=== PATIENT | female | born 1985 | race Caucasian/White ===

== ENCOUNTER 2017-02-03 14:39 | Outpatient (CLI) | payer BC | END 2017-02-03 14:40 | disposition home or self-care (01) | LOC: CTENTCT 14:39 | PROVIDERS: ATTEND Otolaryngology Plastic Surgery within the Head & Neck | DX: J32.9 Chronic sinusitis, unspecified (principal) | CPT/HCPCS: 70486 ==

== ENCOUNTER 2017-02-16 08:37 | Day surgery (SDC) | payer BC ==
[2017-02-15 13:29] VITALS: BMI 17.8
[2017-02-16] MEDS ORDERED: Oxymetazoline HCl 0.05% ( 15 ML ) ONE ×2 (09:27→11:13)
[2017-02-16] MEDS ORDERED: Midazolam HCl 2 mg/2 ml Vial ONE (09:46)
[2017-02-16] MEDS ORDERED: Fentanyl 100 MCG/2 ML VIAL ONE ×2 (11:12→12:08)
[2017-02-16] MEDS ORDERED: Lidocaine 1% w/Epinephrine 1:200K 30 ML VIAL ONE (11:13)
[2017-02-16] MEDS ORDERED: Dexamethasone 20 MG/5 ML VIAL ONE (11:25)
[2017-02-16] MEDS ORDERED: Ondansetron HCl/PF 4 MG/2 ML Vial ONE (11:25)
[2017-02-16] MEDS ORDERED: Propofol 200 MG/20 ML VIAL ONE (11:25)
[2017-02-16] MEDS ORDERED: Glycopyrrolate 0.2 MG/ML 5 ML SYRINGE ONE (11:25)
[2017-02-16 14:02] LABS: Hematocrit 42.5 % (36.0-47.0)
--- NOTE | 2017-02-17 00:48 | OP ---
PREOPERATIVE DIAGNOSES: 1. Chronic rhinosinusitis. 2. Bilateral inferior turbinate hypertrophy. 3. Nasal obstruction. POSTOPERATIVE DIAGNOSES: 1. Chronic rhinosinusitis. 2. Bilateral inferior turbinate hypertrophy. 3. Nasal obstruction. PROCEDURES: 1. Bilateral endoscopic sinus surgery, total ethmoidectomies. 2. Bilateral endoscopic sinus surgery, maxillary antrostomies. 3. Bilateral endoscopic sinus surgery, frontal sinusotomies. 4. Bilateral inferior turbinate submucosal resection. SURGEON: Osman Johnson M.D. ESTIMATED BLOOD LOSS: 20 mL COMPLICATIONS: None. ANESTHESIA: GETA. PROCEDURE: The patient was taken to the operating room and placed supine on the table. General endo tracheal anesthesia was obtained by the Anesthesia staff. Tube was secured on the left lower lip and the patient was placed in the beach chair position. Following this, Afrin pledgets were placed in t he nasal cavity as the patient was prepped and draped for standard nasal procedure. Following this, the Afrin pledgets were removed. A 0-degree scope was used to inject 1% lidocaine with 1:100,000 epi nephrine with a 27-gauge needle into the inferior turbinates, middle turbinates, and lateral nasal wa ll bilaterally. Following this, the middle turbinates were gently medialized with a Kenton elevator a nd the uncinate process was identified. The uncinate was then anteriorly fractured bilaterally with the ball-ended probe and then was removed using the microdebrider and upbiting Yajaira forceps. Fol lowing that, the natural maxillary ostia was identified and was anteriorly w idened using the straigh t Blakesley forceps and the microdebrider bilaterally. Following this, the ethmoidal bulla was ident ified and was punctured on its medial and inferior aspect with the microdebrider and was removed. Fo llowing this, the grand lamella was identified bilaterally and was punctured into the posterior ethmo idal cell. Working from posterior to anterior, the ethmoidal cells were opened in a mucosal-sparing technique. Following this, the curved microdebrider 45-degree scope was then used to visualize the f rontal sinus ostia, which was then widened using the curved microdebrider. Following this, the infer ior turbinates were then punctured on the anterior inferior aspect with the submucosal microdebrider and submucosal resection was performed bilaterally and the anterior and inferior portions of the infe rior turbinate. Inferior turbinates were gently laterally fractured. The nasal cavity was irrigated . MeroPacks were placed. Rosenthal splints were placed and secured. The patient tolerated the procedur e well.
== END 2017-02-16 13:30 | disposition home or self-care (01) ==
LOC: SDC 08:37
PROVIDERS: ATTEND Otolaryngology Plastic Surgery within the Head & Neck
PROC: 099Q8ZZ Drainage of Right Maxillary Sinus, Via Natural or Artificial Opening Endoscopic (ICD-10-PCS; principal; 2017-02-16)
PROC: 09TU8ZZ Resection of Right Ethmoid Sinus, Via Natural or Artificial Opening Endoscopic (ICD-10-PCS; principal; 2017-02-16)
PROC: 09QS8ZZ Repair Right Frontal Sinus, Via Natural or Artificial Opening Endoscopic (ICD-10-PCS; principal; 2017-02-16)
PROC: 09TL8ZZ Resection of Nasal Turbinate, Via Natural or Artificial Opening Endoscopic (ICD-10-PCS; principal; 2017-02-16)
PROC: 099R8ZZ Drainage of Left Maxillary Sinus, Via Natural or Artificial Opening Endoscopic (ICD-10-PCS; principal; 2017-02-16)
PROC: 09QT8ZZ Repair Left Frontal Sinus, Via Natural or Artificial Opening Endoscopic (ICD-10-PCS; principal; 2017-02-16)
PROC: 09TV8ZZ Resection of Left Ethmoid Sinus, Via Natural or Artificial Opening Endoscopic (ICD-10-PCS; principal; 2017-02-16)
DX: J32.9 Chronic sinusitis, unspecified (principal); J34.3 Hypertrophy of nasal turbinates; Z79.2 Long term (current) use of antibiotics; Z79.899 Other long term (current) drug therapy; Z88.5 Allergy status to narcotic agent; Z88.0 Allergy status to penicillin; Z98.890 Other specified postprocedural states; Z87.81 Personal history of (healed) traumatic fracture
CPT/HCPCS: 84703; 85014; 96374; J0131; J1100; J2250; J2405; J2704; J3010

== ENCOUNTER 2018-08-14 09:21 | Outpatient (CLI) | payer OTHER | END 2018-08-14 09:22 | disposition home or self-care (01) | LOC: CTENTCT 09:21 | PROVIDERS: ATTEND Otolaryngology Plastic Surgery within the Head & Neck | DX: J32.9 Chronic sinusitis, unspecified (principal); L70.0 Acne vulgaris | CPT/HCPCS: 70486 ==

== ENCOUNTER 2019-09-14 15:26 | Emergency (ER) | payer BC, SELFPAY ==
[2019-09-14 16:07] LABS: #Eosinphils 0.1 thou/uL (0.0-0.7); #Lymphocytes 1.6 thou/uL (1.20-3.40); #Monocytes 0.6 thou/uL (0.11-0.59); #Neutrophils 3.9 thou/uL (1.40-6.50); %Basophils 0.1 % (0.0-1.0); %Lymphocytes 26.4 % (21.0-51.0); %Monocytes 10.1 % (0.0-10.0); %Neutrophils 62.4 % (42.0-75.0); Hemoglobin 13.8 g/dL (12.0-16.0); Mean Corpuscular HGB CONC 34.8 g/dL (32.0-36.0); Mean Corpuscular Hemoglobin 31.6 pg (27.0-31.0); Mean Corpuscular Volume 90.9 fL (78.0-98.0); Mean Platelet Volume 8.1 fL (7.4-10.4); Platelet Count 165 thou/uL (130-400); RBC Distribution Width 11.6 % (11.5-14.5); Red Blood Cell (RBC) Count 4.37 mill/uL (4.20-5.40); White Blood Cell (WBC) Count 6.2 thou/uL (4.8-10.8)
[2019-09-14 16:14] LABS: BHCG - Serum POSITIVE (NEGATIVE); Pregs Control Background? CLEAR/WHITE (CLR/WHITE); Pregs Control Bar Appear? YES (CONTROL BAR)
--- NOTE | 2019-09-14 17:17 | ULT ---
ULTRASOUND PELVIC ULTRASOUND TRANSVAGINAL DOPPLER DUPLEX: DATE: 09/14/2019 HISTORY: 34-year-old female with first trimester vaginal bleeding TECHNIQUE: Transabdominal transducer and endovaginal transducer used to visualize intrapelvic contents with higuera scale, color-flow, and spectral analysis. FINDINGS: There is an intrauterine gestational sac, containing a pole. [place]-rump length 2.0 cm: 8 weeks 4 days gestational age. heart rate: 175 bpm Superior-lateral to the left of the gestational sac, there is a 3.3 x 1.8 x 2.5 cm subchorionic hemor rhage. Posterior and to the right of the gestational sac, there is a 1 x 0.7 cm oval cystic structure, conta ining no pole and no yolk sac. Right ovary not visualized. Normal appearing left ovary with blood flow by Doppler. No corpus luteal cyst in left ovary. No free fluid in cul-de-sac. IMPRESSION: 1) live first trimester intrauterine gestation estimated to be 8 weeks 4 days gestational age. 2) subchorionic hemorrhage. 3) cystic structure adjacent to the gestational sac. Perhaps this is a second, smaller gestational sa c. It contains no embryo and no yolk sac.
== END 2019-09-14 18:30 | disposition home or self-care (01) ==
LOC: ERS 15:26
DX: O20.9 Hemorrhage in early pregnancy, unspecified (principal); O99.511 Diseases of the respiratory system complicating pregnancy, first trimester; J45.909 Unspecified asthma, uncomplicated; Z3A.09 9 weeks gestation of pregnancy
CPT/HCPCS: 36415; 76856; 84702; 84703; 85025; 86900; 86901

== ENCOUNTER 2019-09-14 20:58 | Emergency (ER) | payer BC ==
[2019-09-14 21:58] LABS: #Eosinphils 0.1 thou/uL (0.0-0.7); #Lymphocytes 1.2 thou/uL (1.20-3.40); #Monocytes 0.7 thou/uL (0.11-0.59); #Neutrophils 4.9 thou/uL (1.40-6.50); %Basophils 0.3 % (0.0-1.0); %Eosinophils 0.8 % (0.0-10.0); %Lymphocytes 17.9 % (21.0-51.0); %Monocytes 9.8 % (0.0-10.0); %Neutrophils 71.3 % (42.0-75.0); Hemoglobin 12.2 g/dL (12.0-16.0); Mean Corpuscular HGB CONC 34.6 g/dL (32.0-36.0); Mean Corpuscular Hemoglobin 31.5 pg (27.0-31.0); Mean Platelet Volume 8.1 fL (7.4-10.4); Platelet Count 160 thou/uL (130-400); RBC Distribution Width 11.6 % (11.5-14.5); Red Blood Cell (RBC) Count 3.89 mill/uL (4.20-5.40); White Blood Cell (WBC) Count 6.9 thou/uL (4.8-10.8)
[2019-09-14 22:18] LABS: ALT (SGPT) 16 U/L (8-55); AST (SGOT) 13 U/L (5-34); Albumin 3.8 g/dL (3.5-5.0); Alkaline Phosphatase 37 U/L (40-110); Anion Gap 8 mmol/L (10-20); BUN (Urea Nitrogen) 8 mg/dL (7.0-18.7); Bilirubin, Total 0.5 mg/dL (0.2-1.2); Calc. Creatinine Clearance 0 mL/min (70-130); Calcium 8.6 mg/dL (7.8-10.44); Carbon Dioxide 26 mmol/L (22-29); Chloride 108 mmol/L (98-107); Estimated GFR-MDRD 88; Globulin 2.2 g/dL (2.4-3.5); Glucose 101 mg/dL (70-105); Potassium 3.2 mmol/L (3.5-5.1); Sodium 139 mmol/L (136-145)
== END 2019-09-15 | disposition home or self-care (01) ==
LOC: ERS 20:58
DX: O99.89 Other specified diseases and conditions complicating pregnancy, childbirth and the puerperium (principal); R55 Syncope and collapse; O99.511 Diseases of the respiratory system complicating pregnancy, first trimester; J45.909 Unspecified asthma, uncomplicated; Z87.442 Personal history of urinary calculi; Z79.1 Long term (current) use of non-steroidal anti-inflammatories (NSAID); Z3A.09 9 weeks gestation of pregnancy
CPT/HCPCS: 36415; 76856; 80053; 84702; 84703; 85025; 86900; 86901; 93005; 96360; 96361

== ENCOUNTER 2020-04-07 19:26 | Inpatient (IN) | payer BC ==
[~2020-04-07 19:26] MED LIST: Bupivacaine HCl 0.5%/Epinephrine 1:200,000/PF 30 ml Vial ONE; ePHEDrine 50 MG/ML VIAL ONE
[2020-04-07 19:46] VITALS: BMI 21.9
[2020-04-07] MEDS ORDERED: Butorphanol Tartrate 1 MG/ML VIAL SLOW IVP SCH (20:30)
[2020-04-07] MEDS ORDERED: Promethazine HCl 25 MG/ML VIAL IM SCH (20:30)
[2020-04-07] MEDS ORDERED: Ondansetron PF 4 MG/2 ML Vial IVP PRN ×2 (20:42→22:03)
[2020-04-07] MEDS ORDERED: NS / Oxytocin 40 units/1000ml 1,000 ML IV PRN ×2 (20:42→21:56)
[2020-04-07] MEDS ORDERED: Ibuprofen 800 MG TAB PO PRN (20:42)
[2020-04-07] MEDS ORDERED: Lidocaine 1% (PF) 30 ML VIAL SC PRN ×2 (20:42→21:56)
[2020-04-07] MEDS ORDERED: hydrALAZINE 20 MG/ML VIAL SLOW IVP PRN (20:42)
[2020-04-07] MEDS ORDERED: Zolpidem Tartrate 5 MG TAB PO PRN (20:43)
[2020-04-07] MEDS ORDERED: Lactated Ringer's 1,000 ML IV SCH ×2 (20:45)
[2020-04-07] MEDS ORDERED: NS w/ Oxytocin 30 units 500 ML IV PRN ×2 (20:49→22:02)
[2020-04-07 20:55] LABS: Mean Corpuscular HGB CONC 33.6 g/dL (32.0-36.0); Mean Corpuscular Hemoglobin 27.9 pg (27.0-31.0); Mean Platelet Volume 9.6 fL (7.4-10.4); Platelet Count 170 thou/uL (130-400); RBC Distribution Width 12.4 % (11.5-14.5); Red Blood Cell (RBC) Count 4.66 mill/uL (4.20-5.40); White Blood Cell (WBC) Count 12.3 thou/uL (4.8-10.8)
[2020-04-07] MEDS ORDERED: Fentanyl 4 mcg/Bup 0.1% Cadd 100 ML ONE (21:18)
[2020-04-07 21:34] LABS: Syphilis Antibody Nonreactive (Nonreactive); Syphilis Antibody Index 0.04 S/CO (<1.00 Non-Reactive)
[2020-04-07] MEDS ORDERED: Fentanyl 100 MCG/2 ML VIAL ONE (21:42)
[2020-04-07] MEDS ORDERED: Clindamycin/D5W 900 MG in Premix Bag 1 BAG IVPB SCH (22:00)
[2020-04-07] MEDS ORDERED: CEFAZOLIN 2 GM in Premix Bag 1 BAG IVPB SCH (22:00)
[2020-04-07] MEDS ORDERED: ePHEDrine 50 MG/ML VIAL SLOW IVP PRN (22:03)
[2020-04-07] MEDS ORDERED: Lactated Ringer's 500 ML IV PRN (22:03)
[2020-04-07] MEDS ORDERED: Acetaminophen 325 MG TAB PO PRN (22:03)
[2020-04-07] MEDS ORDERED: diphenhydrAMINE 50 MG/ML VIAL IVP PRN (22:03)
[2020-04-07] MEDS ORDERED: Naloxone HCl 0.4 mg/ml Vial IVP PRN ×2 (22:03)
[2020-04-07] MEDS ORDERED: Promethazine HCl 25 MG/ML VIAL IM PRN (22:03)
[2020-04-07] MEDS ORDERED: Fentanyl 4 mcg/Bupivacaine 0.1% Cassette 100 ML EPIDURAL SCH (22:15)
[2020-04-07] MEDS ORDERED: Communication Order-Pharmacy FS SCH (22:15)
[2020-04-08] MEDS ORDERED: hydrALAZINE 20 MG/ML VIAL SLOW IVP PRN (00:45)
[2020-04-08] MEDS ORDERED: Lanolin Ointment 7 GM TUBE TOP PRN (00:45)
[2020-04-08] MEDS ORDERED: Bisacodyl 10 MG SUPP PR PRN (00:45)
[2020-04-08] MEDS ORDERED: Misoprostol 200 MCG TAB VAG PRN (00:45)
[2020-04-08] MEDS ORDERED: Benzocaine-Menthol 82.5 ML CAN TOP PRN (00:45)
[2020-04-08] MEDS ORDERED: HYDROcodone/Acetaminophen 5/325 mg Tablet PO PRN (00:45)
[2020-04-08] MEDS ORDERED: NS / Oxytocin 40 units/1000ml 1,000 ML IV SCH (00:45)
[2020-04-08] MEDS ORDERED: Ondansetron PF 4 MG/2 ML Vial IVP PRN (00:45)
[2020-04-08] MEDS ORDERED: Milk Of Magnesia 30 ML UDCUP PO PRN (00:45)
[2020-04-08] MEDS ORDERED: Adacel (T-DAP) 0.5 ML SYRINGE IM ONE (00:45)
[2020-04-08] MEDS ORDERED: diphenhydrAMINE 25 MG CAP PO PRN (00:45)
[2020-04-08] MEDS ORDERED: Preparation H Ointment 28 GM TUBE PR PRN (00:45)
[2020-04-08] MEDS ORDERED: Zolpidem Tartrate 5 MG TAB PO PRN (00:45)
[2020-04-08] MEDS ORDERED: NS w/ Oxytocin 30 units 500 ML IV SCH (01:00)
[2020-04-08] MEDS ORDERED: CEFAZOLIN 2 GM in Premix Bag 1 BAG IVPB SCH (01:00)
[2020-04-08 01:45] LABS: HBSAg Index 0.16 S/CO (0-0.99); Hep B Surf Ag Non-Reactive S/CO (NonReactive)
[2020-04-08] MEDS: Ibuprofen 800 MG TAB PO SCH ×3 (04:51→22:00)
[2020-04-08] MEDS ORDERED: ceFAZolin 1 GM/D5W 1 GM in Premix Bag 1 BAG IVPB SCH (06:00)
[2020-04-08 06:35] LABS: SARS-CoV-2 MS2 Positive; SARS-CoV-2 N Gene Negative; SARS-CoV-2 S Gene Negative; SARS-CoV-2 by NAA Not Detected (NotDetected); SARS-CoV-2 orf1ab Negative
[2020-04-08 07:17] LABS: Hemoglobin 10.6 g/dL (12.0-16.0); Mean Corpuscular HGB CONC 33.1 g/dL (32.0-36.0); Mean Corpuscular Hemoglobin 27.7 pg (27.0-31.0); Mean Corpuscular Volume 83.9 fL (78.0-98.0); Mean Platelet Volume 9.1 fL (7.4-10.4); Platelet Count 127 thou/uL (130-400); RBC Distribution Width 12.3 % (11.5-14.5); Red Blood Cell (RBC) Count 3.83 mill/uL (4.20-5.40); White Blood Cell (WBC) Count 16.1 thou/uL (4.8-10.8)
[2020-04-08] MEDS ORDERED: Prenatal Vitamin 1 TAB PO SCH (09:00)
[2020-04-08] MEDS: Docusate Calcium (SURFAK) 240 MG CAP PO SCH ×2 (09:14→22:02)
[2020-04-08] MEDS: Ferrous Sulfate 325 MG TAB PO SCH ×2 (09:16→15:50)
[2020-04-08] MEDS: Triple Antibiotic Oint 1 GM Packet TOP SCH ×5 (11:21→22:03)
[2020-04-08] MEDS: Acetaminophen 325 MG TAB PO PRN ×2 (11:21→17:29)
[2020-04-08] MEDS: HYDROcodone/Acetaminophen 5/325 mg Tablet PO PRN (22:01)
[2020-04-09 03:36] VITALS: TEMP 97.9
[2020-04-09] MEDS: Triple Antibiotic Oint 1 GM Packet TOP SCH (04:21)
[2020-04-09] MEDS: Ibuprofen 800 MG TAB PO SCH (05:34)
[2020-04-09] MEDS: HYDROcodone/Acetaminophen 5/325 mg Tablet PO PRN (06:41)
[2020-04-09 08:17] VITALS: BP 113/70
[2020-04-09] MEDS: Ferrous Sulfate 325 MG TAB PO SCH (09:08)
== END 2020-04-09 10:35 | disposition home or self-care (01) | DRG 807 ==
LOC: L&D/OP 19:26 → L&D 22:42 → 3SW 04-08 02:54
PROVIDERS: ADMIT Obstetrics & Gynecology; ATTEND Obstetrics & Gynecology
PROC: 10E0XZZ Delivery of Products of Conception, External Approach (ICD-10-PCS; principal; 2020-04-08)
PROC: 0UQMXZZ Repair Vulva, External Approach (ICD-10-PCS; 2020-04-08)
PROC: 0HQ9XZZ Repair Perineum Skin, External Approach (ICD-10-PCS; 2020-04-08)
DX: O99.824 Streptococcus B carrier state complicating childbirth (principal); Z37.0 Single live birth; Z20.822 Contact with and (suspected) exposure to COVID-19; O71.82 Other specified trauma to perineum and vulva; O70.0 First degree perineal laceration during delivery; Z3A.39 39 weeks gestation of pregnancy; Z88.0 Allergy status to penicillin; Z88.5 Allergy status to narcotic agent
CPT/HCPCS: 36415; 51702; 85027; 86780; 86850; 86900; 86901; 87340; 87635; 99285; J0595; J0690; J2405; J2550; J2590; J3010; J3490; U0003